=== PATIENT | male | born 1955 | race Caucasian/White ===

== ENCOUNTER 2016-06-12 18:51 | Emergency (ER) | payer BC ==
[2016-06-12] MEDS ORDERED: Aspirin 81 MG Tab.Chew PO ONE (19:03)
[2016-06-12] MEDS ORDERED: Sodium Chloride 0.9% 2.5 ML Syringe FLUSH PRN (19:03)
[2016-06-12] MEDS ORDERED: Sodium Chloride 0.9% 10 ML Syringe FLUSH PRN (19:03)
[2016-06-12] MEDS: Nitroglycerin 0.4 MG Tab.SL SL SCH ×3 (19:12→19:25)
[2016-06-12] MEDS ORDERED: Metoprolol Tartrate 5 MG/5 ML SDV IVPUSH ONE (19:14)
[2016-06-12] MEDS ORDERED: Aspirin 81 MG Tab.Chew ONE (19:18)
--- NOTE | 2016-06-12 19:19 | EDM.PDOC ---
ED HPI GENERAL MEDICAL PROBLEM - General Chief Complaint: Chest Pain Stated Complaint: PT HAS CHEST PAINS Time Seen by Provider: 06/12/16 19:05 - History of Present Illness INITIAL COMMENTS - FREE TEXT/NARRATIVE: HISTORY AND PHYSICAL: History of present illness: The patient is a 61-year-old male with history of high cholesterol and A. fib was been seen by cardiology at [facility] in [place] in the past for his atrial fibrillation and presents with midsternal chest pain pressure that started at 12 noon today. He says it's been coming and going and became more severe so he came in to be seen. He's having some shortness of breath but no lightheadedness no nausea no diaphoresis. He denies any trauma or recent upper respiratory infections. He has no abdominal pain. The patient is on metoprolol and Norpace for his A. fib. He rates the pain currently as 5/10 and it is not radiating. He points to his lower sternum as the area of discomfort. Patient has never had a heart catheter in the past and has no known coronary artery disease. He also has a history of hypercholesterolemia. Review of systems: As per history of present illness and below otherwise all systems reviewed and negative. Past medical history: As per history of present illness and as reviewed below otherwise noncontributory. Surgical history: As per history of present illness and as reviewed below otherwise noncontributory. Social history: No reported history of drug or alcohol abuse. Family history: As per history of present illness and as reviewed below otherwise noncontributory. Physical exam: General: Well-developed well-nourished male who is nontoxic but looks uncomfortable and vital signs are noted by me. HEENT: Atraumatic normocephalic, pupils reactive, negative for conjunctival pallor or scleral icterus, mucous membranes moist, throat clear, neck supple, nontender, trachea midline. Lungs: Clear to auscultation, breath sounds equal bilaterally, chest nontender. No work or breathing Heart: S1S2, irregular and tachycardic on my evaluation initially, negative for clicks, rubs, or JVD. Abdomen: Soft, nondistended, nontender. Negative for masses or hepatosplenomegaly. Negative for costovertebral tenderness. Pelvis: Stable nontender. Genitourinary: Deferred. Rectal: Deferred. Extremities: Atraumatic, negative for cords or calf pain. Neurovascular unremarkable. No pedal edema or leg asymmetry Neuro: Awake, alert, oriented. Cranial nerves II through XII unremarkable. Cerebellum unremarkable. Motor and sensory unremarkable throughout. Exam nonfocal. Diagnostics: EKG x2 portable chest x-ray CBC CMP INR troponin Therapeutics: IV O2 monitor nitroglycerin sublingual aspirin Lopressor 1908: Our hooker on Dr. Mariee was contacted and the EKG was sent to him after obtaining permission from the patient. He has reviewed it and would like to slow the rate and reevaluate with a second EKG. he states is not completely clear that this is an acute injury from this initial EKG. He also at 1913 recontacted me and asked if we could do an EKG looking at leads in V7 through V9. We are currently in the process of getting respiratory to do that. 1923: Dr. Mariee is aware that we're having difficulties getting the EKG he is requesting so he is coming in to see the patient. Currently the patient states his pain is a 2/10 after one nitroglycerin and his heart rate is in the low 100s. We will continue with the plan 1931: Repeat EKG shows normalization of the ST depression in V2 and V3 and slight increase in the sweep of the ST segment inferiorly but overall much improved. I've discussed the case with cardiology inhalation therapy aides teacher at [facility], Dr. Perez. He is except the patient for direct admission to the ICU. He would like me to not to give any Plavix but only Lovenox 1 mg per kilogram, he would like nitro drip and 5 mg more of Lopressor. I've inform the patient that he will be transferred and he and are in agreement and concur. The patient currently is pain-free. 1943: Currently the patient's heart rate is 49-50 and she did not receive the second dose of 5 mg of Lopressor. He is currently pain-free and feels more relaxed. I will do a third EKG and we will attempt to do the posterior EKG 1944: Dr. Mariee her hooker on is here and is reviewing the 2 EKGs and we are currently doing the third. The patient's heart rate is still holding in the high 40s low 50s. He is not lightheaded or dizzy. We will arrange for flight team to come and take the patient to [facility]. Dr. Mariee agrees that the patient should be flown to [facility]. 1950: 30 EKG shows a sinus bradycardia with no ST segment changes but Dr. Mariee still feels that the patient should be flown to [facility] for acute management. Portable chest x-ray is currently being performed and I will review that and send the films to [place] Impression: Acute non-STEMI ID with history of A. fib, Definitive disposition and diagnosis as appropriate pending reevaluation and review of above. Chest Pain Score (Numeric/FACES): 5 - Related Data Allergies Allergy/AdvReac Type Severity Reaction Status Date / Time No Known Allergies Allergy Verified 09/22/15 15:43 Home Meds: Home Meds Aspirin 162.5 mg PO DAILY 09/22/15 [History] Metoprolol Tartrate 12.5 mg PO BEDTIME 09/22/15 [History] Multivitamin [Daily Multiple Vitamin] 1 tab PO DAILY 09/22/15 [History] Chadwick-3 Fatty Acids [Fish Oil] 1 cap PO DAILY 09/22/15 [History] Simvastatin [Zocor] 20 mg PO BEDTIME 09/22/15 [History] Disopyramide Phosphate 200 mg PO BID 06/12/16 [History] Past Medical History Other HEENT History: wears glasses Cardiovascular History: Reports: Afib, High cholesterol Other Cardiovascular History: has "attack" of A-Fib about once a month, lasts 30 seconds to 1 minute Respiratory History: Reports: Sleep apnea Other Respiratory History: uses Bi-PAP Gastrointestinal History: Reports: GERD Genitourinary History: Reports: None Musculoskeletal History: Reports: Back pain, chronic, Fracture Neurological History: Reports: None Psychiatric History: Reports: None Endocrine/Metabolic History: Reports: None Hematologic History: Reports: None Immunologic History: Reports: None Oncologic (Cancer) History: Reports: None Dermatologic History: Reports: None - Past Surgical History Head Surgeries/Procedures: Reports: None GI Surgical History: Reports: None Male Surgical History: Reports: None Endocrine Surgical History: Reports: None Neurological Surgical History: Reports: None Other Musculoskeletal Surgeries/Procedures:: left leg Oncologic Surgical History: Reports: None Dermatological Surgical History: Reports: None Social & Family History - Tobacco Use Smoking Status *Q: Never Smoker - Recreational Drug Use Recreational Drug Use: No Drug Use in Last 12 Months: No ED ROS GENERAL - Review of Systems Review Of Systems: ROS reveals no pertinent complaints other than HPI. ED EXAM, GENERAL - Physical Exam Exam: See Below (See dictation) Course - Vital Signs Last Recorded V/S: Last Vital Signs Temp 37.4 C 06/12/16 19:40 Pulse 87 06/12/16 19:42 Resp 20 06/12/16 19:40 BP 127/74 06/12/16 19:42 Pulse Ox 97 06/12/16 19:40 - Orders/Labs/Meds Orders: Active Orders 24 hr Category Date Time Status Cardiac Monitoring [RC] . DIRECTED Care 06/12/16 19:03 Active EKG Documentation Completion [RC] STAT Care 06/12/16 19:03 Active EKG Documentation Completion [RC] STAT Care 06/12/16 19:26 Active Oxygen Therapy, ED [RC] ASDIRECTED Care 06/12/16 19:03 Active Pulse Oximetry [RC] ASDIRECTED Care 06/12/16 19:03 Active Chest 1V Frontal [CR] Stat Exams 06/12/16 19:03 Ordered Nitroglycerin/D5W [Nitroglycerin 25 MG/D5W 250 ML] 250 Med 06/12/16 19:45 Ordered ml IV TITRATE Sodium Chloride 0.9% [Saline Flush] Med 06/12/16 19:03 Active 10 ml FLUSH ASDIRECTED PRN Sodium Chloride 0.9% [Saline Flush] Med 06/12/16 19:03 Active 2.5 ml FLUSH ASDIRECTED PRN Saline Lock Insert [OM.PC] Stat Oth 06/12/16 19:03 Ordered Medication Orders Nitroglycerin/Dextrose (Nitroglycerin 25 Mg/D5w 250 Ml) 250 mls @ 3 mls/hr IV TITRATE SEBASTIAN PRN Reason: 5 MCG/MIN Sodium Chloride (Saline Flush) 10 ml FLUSH ASDIRECTED PRN PRN Reason: Keep Vein Open Sodium Chloride (Saline Flush) 2.5 ml FLUSH ASDIRECTED PRN PRN Reason: Keep Vein Open Labs: Laboratory Tests 06/12/16 06/12/16 06/12/16 Range/Units 19:00 19:00 19:00 WBC 7.42 (4.0-11.0) K/uL RBC 5.31 (4.50-5.90) M/uL Hgb 16.1 (13.0-17.0) g/dL Hct 44.9 (38.0-50.0) % MCV 84.6 (80.0-98.0) fL MCH 30.3 (27.0-32.0) pg MCHC 35.9 (31.0-37.0) g/dL RDW Std Deviation 39.7 (28.0-62.0) fl RDW Coeff of Madhu 13 (11.0-15.0) % Plt Count 145 L (150-400) K/uL MPV 11.40 (7.40-12.00) fL Neut % (Auto) 62.2 (48.0-80.0) % Lymph % (Auto) 28.4 (16.0-40.0) % Grant % (Auto) 7.5 (0.0-15.0) % Eos % (Auto) 1.8 (0.0-7.0) % Baso % (Auto) 0.1 (0.0-1.5) % Neut # (Auto) 4.6 (1.4-5.7) K/uL Lymph # (Auto) 2.1 (0.6-2.4) K/uL Grant # (Auto) 0.6 (0.0-0.8) K/uL Eos # (Auto) 0.1 (0.0-0.7) K/uL Baso # (Auto) 0.0 (0.0-0.1) K/uL Nucleated RBC % 0.0 /100WBC Nucleated RBCs # 0 K/uL INR 0.97 (0.86-1.11) Sodium 142 (136-146) mmol/L Potassium 3.7 (3.5-5.1) mmol/L Chloride 108 (98-110) mmol/L Carbon Dioxide 23 (21-31) mmol/L BUN 16 (6.0-23.0) mg/dL Creatinine 1.1 (0.6-1.5) mg/dL Est Cr Clr Drug Dosing 81.99 mL/min Estimated GFR (MDRD) > 60.0 ml/min Glucose 85 (60-110) mg/dL Calcium 10.0 (8.8-10.8) mg/dL Total Bilirubin 0.8 (0.1-1.5) mg/dL AST 33 (5-40) IU/L ALT 56 H (8-54) IU/L Alkaline Phosphatase 72 (40-150) Troponin I (0.0-0.29) NG/ML Total Protein 7.8 (6.0-8.0) g/dL Albumin 4.6 (3.4-4.8) g/dL Globulin 3.2 (2.0-3.5) g/dL Albumin/Globulin Ratio 1.4 (1.3-2.8) 06/12/16 Range/Units 19:00 WBC (4.0-11.0) K/uL RBC (4.50-5.90) M/uL Hgb (13.0-17.0) g/dL Hct (38.0-50.0) % MCV (80.0-98.0) fL MCH (27.0-32.0) pg MCHC (31.0-37.0) g/dL RDW Std Deviation (28.0-62.0) fl RDW Coeff of Madhu (11.0-15.0) % Plt Count (150-400) K/uL MPV (7.40-12.00) fL Neut % (Auto) (48.0-80.0) % Lymph % (Auto) (16.0-40.0) % Grant % (Auto) (0.0-15.0) % Eos % (Auto) (0.0-7.0) % Baso % (Auto) (0.0-1.5) % Neut # (Auto) (1.4-5.7) K/uL Lymph # (Auto) (0.6-2.4) K/uL Grant # (Auto) (0.0-0.8) K/uL Eos # (Auto) (0.0-0.7) K/uL Baso # (Auto) (0.0-0.1) K/uL Nucleated RBC % /100WBC Nucleated RBCs # K/uL INR (0.86-1.11) Sodium (136-146) mmol/L Potassium (3.5-5.1) mmol/L Chloride (98-110) mmol/L Carbon Dioxide (21-31) mmol/L BUN (6.0-23.0) mg/dL Creatinine (0.6-1.5) mg/dL Est Cr Clr Drug Dosing mL/min Estimated GFR (MDRD) ml/min Glucose (60-110) mg/dL Calcium (8.8-10.8) mg/dL Total Bilirubin (0.1-1.5) mg/dL AST (5-40) IU/L ALT (8-54) IU/L Alkaline Phosphatase (40-150) Troponin I 0.31 H* (0.0-0.29) NG/ML Total Protein (6.0-8.0) g/dL Albumin (3.4-4.8) g/dL Globulin (2.0-3.5) g/dL Albumin/Globulin Ratio (1.3-2.8) Meds: Medications Generic Name Dose Route Start Last Admin Trade Name Freq PRN Reason Stop Dose Admin Nitroglycerin/Dextrose 250 mls @ 3 mls/hr 06/12/16 19:45 Nitroglycerin 25 Mg/D5w 250 Ml IV TITRATE SEBASTIAN 5 MCG/MIN Sodium Chloride 10 ml 06/12/16 19:03 Saline Flush FLUSH ASDIRECTED PRN Keep Vein Open Sodium Chloride 2.5 ml 06/12/16 19:03 Saline Flush FLUSH ASDIRECTED PRN Keep Vein Open Discontinued Medications Generic Name Dose Route Start Last Admin Trade Name Freq PRN Reason Stop Dose Admin Aspirin 324 mg 06/12/16 19:03 06/12/16 19:12 Aspirin PO 06/12/16 19:04 324 mg ONETIME ONE Administration Aspirin Confirm 06/12/16 19:18 06/12/16 19:38 Aspirin Administered 06/12/16 19:19 Not Given Dose 81 mg .ROUTE .STK-MED ONE Enoxaparin Sodium 100 mg 06/12/16 19:37 06/12/16 19:42 Lovenox SUBCUT 06/12/16 19:38 100 mg ONETIME ONE Administration Metoprolol Tartrate 2.5 mg 06/12/16 19:14 06/12/16 19:22 Lopressor IVPUSH 06/12/16 19:15 2.5 mg ONETIME ONE Administration Metoprolol Tartrate 5 mg 06/12/16 19:37 06/12/16 19:42 Lopressor IVPUSH 06/12/16 19:38 5 mg ONETIME ONE Administration Nitroglycerin 0.4 mg 06/12/16 19:15 06/12/16 19:25 Nitrostat SL 06/12/16 19:26 0.4 mg Q5M SEBASTIAN Administration Departure - Departure Time of Disposition: 19:52 Disposition: DC/Tfer to Acute Hospital 02 Condition: good Clinical Impression: Non-STEMI (non-ST elevated myocardial infarction) Forms: ED Department Discharge - My Orders Last 24 Hours: My Active Orders 06/12/16 19:03 Cardiac Monitoring [RC] . DIRECTED EKG Documentation Completion [RC] STAT Oxygen Therapy, ED [RC] ASDIRECTED Pulse Oximetry [RC] ASDIRECTED Chest 1V Frontal [CR] Stat Sodium Chloride 0.9% [Saline Flush] 10 ml FLUSH ASDIRECTED PRN Sodium Chloride 0.9% [Saline Flush] 2.5 ml FLUSH ASDIRECTED PRN Saline Lock Insert [OM.PC] Stat 06/12/16 19:26 EKG Documentation Completion [RC] STAT 06/12/16 19:45 Nitroglycerin/D5W [Nitroglycerin 25 MG/D5W 250 ML] 250 ml IV TITRATE - Assessment/Plan Last 24 Hours: My Active Orders 06/12/16 19:03 Cardiac Monitoring [RC] . DIRECTED EKG Documentation Completion [RC] STAT Oxygen Therapy, ED [RC] ASDIRECTED Pulse Oximetry [RC] ASDIRECTED Chest 1V Frontal [CR] Stat Sodium Chloride 0.9% [Saline Flush] 10 ml FLUSH ASDIRECTED PRN Sodium Chloride 0.9% [Saline Flush] 2.5 ml FLUSH ASDIRECTED PRN Saline Lock Insert [OM.PC] Stat 06/12/16 19:26 EKG Documentation Completion [RC] STAT 06/12/16 19:45 Nitroglycerin/D5W [Nitroglycerin 25 MG/D5W 250 ML] 250 ml IV TITRATE
[2016-06-12] MEDS ORDERED: Enoxaparin 100 MG/1 ML Syringe SUBCUT ONE (19:37)
[2016-06-12 19:38] LABS: CHLORIDE,CL 108 mmol/L (98-110); SODIUM,NA 142 mmol/L (136-146)
[2016-06-12] MEDS: Metoprolol Tartrate 5 MG/5 ML SDV IVPUSH ONE ×2 (19:42→19:46)
[2016-06-12] MEDS ORDERED: Nitroglycerin/D5W 25 MG/250 ML BOTTLE IV SCH (19:45)
[2016-06-12 21:06] VITALS: BP 127/84
--- NOTE | 2016-06-13 11:01 | CR ---
EXAM DATE: 06/12/16 PATIENT'S AGE: 61 Patient: AJ DE LEÓN Facility: [place], [place] Site Site : [id number] Study: XRay Chest [id number] 8:03:51 PM Ordering Physician: ELI Final Report: HISTORY: Chest pain. Technique: One view portable chest. Comparison: None. Findings: No airspace consolidation. No pleural effusion or pneumothorax. Pulmonary vasculature is within normal limits. Cardiomediastinal silhouette is within normal limits for technique. Impression: No acute findings. Dictated by Pablo Rice MD @ Jun 12 2016 8:07PM (Electronic Signature) Report Signed by Proxy and Original Signed Document filed in the Medical Record. MTDD
== END 2016-06-12 20:20 ==
LOC: MW.ED 18:51
DX: I21.4 Non-ST elevation (NSTEMI) myocardial infarction (principal); E78.00 Pure hypercholesterolemia, unspecified; Z79.899 Other long term (current) drug therapy; Z79.82 Long term (current) use of aspirin; I48.91 Unspecified atrial fibrillation
CPT/HCPCS: 36415; 71010; 80053; 84484; 85025; 85610; 93005; 96372; 96374; 99285; A9270; J1650

== ENCOUNTER 2017-06-17 06:19 | Emergency (ER) | payer BC ==
--- NOTE | 2017-06-17 06:26 | EDM.PDOC ---
<Pablo Alvarez - Last Filed: 06/17/17 07:03> ED HPI GENERAL MEDICAL PROBLEM - General Chief Complaint: Back Pain or Injury Stated Complaint: BACK PAIN Time Seen by Provider: 06/17/17 06:26 Source of Information: Reports: Patient - History of Present Illness INITIAL COMMENTS - FREE TEXT/NARRATIVE: HISTORY AND PHYSICAL: History of present illness: [Patient presents with 7 out of 10 chest pain radiating to his back he has history of atrial fibrillation post ablation last year as well as 6 stents placed last year, patient is quite anxious on arrival no safe association with shortness of breath or diaphoresis no radiation to arm neck or jaw Patient had taken nitroglycerin at home With some improvement after first dose he did not take any subsequent dosing of nitroglycerin ] Review of systems: As per history of present illness and below otherwise all systems reviewed and negative. Past medical history: As per history of present illness and as reviewed below otherwise noncontributory. Surgical history: As per history of present illness and as reviewed below otherwise noncontributory. Social history: No reported history of drug or alcohol abuse. Family history: As per history of present illness and as reviewed below otherwise noncontributory. Physical exam: HEENT: Atraumatic, normocephalic, pupils reactive, negative for conjunctival pallor or scleral icterus, mucous membranes moist, throat clear, neck supple, nontender, trachea midline. Lungs: Clear to auscultation, breath sounds equal bilaterally, chest nontender. Heart: S1S2, regular, negative for clicks, rubs, or JVD. Abdomen: Soft, nondistended, nontender. Negative for masses or hepatosplenomegaly. Negative for costovertebral tenderness. Pelvis: Stable nontender. Genitourinary: Deferred. Rectal: Deferred. Extremities: Atraumatic, negative for cords or calf pain. Neurovascular unremarkable. Neuro: Awake, alert, oriented. Cranial nerves II through XII unremarkable. Cerebellum unremarkable. Motor and sensory unremarkable throughout. Exam nonfocal. Diagnostics: [CBC CMP troponin lipase EKG Chest 1 view ] Therapeutics: Normal saline 1 25 mL [Patient had taken aspirin 325 mg 2 hours prior to arrival] Nitroglycerin 0.4 sublingual every 5 minutes Morphine 2 mg IV Impression: [Chest pain Chronic history at baseline] Patient signed out to Dr. Liang at 7 AM follow lab and redirected and disposition Definitive disposition and diagnosis as appropriate pending reevaluation and review of above. back pain Pain Score (Numeric/FACES): 5 - Related Data Allergies Allergy/AdvReac Type Severity Reaction Status Date / Time No Known Allergies Allergy Verified 06/17/17 06:25 Home Meds: Home Meds Aspirin 81 mg PO DAILY 09/22/15 [History] Multivitamin [Daily Multiple Vitamin] 1 tab PO DAILY 09/22/15 [History] [place]-3 Fatty Acids [Fish Oil] 1 cap PO DAILY 09/22/15 [History] Nitroglycerin [Nitrostat] 1 tab SL ASDIRECTED PRN 06/17/17 [History] Prasugrel [Effient] 10 mg PO DAILY 06/17/17 [History] Ramipril 1 tab PO DAILY 06/17/17 [History] Rosuvastatin [Crestor] 40 mg PO DAILY 06/17/17 [History] Past Medical History Other HEENT History: wears glasses Cardiovascular History: Reports: Afib, High Cholesterol Other Cardiovascular History: has "attack" of A-Fib about once a month, lasts 30 seconds to 1 minute Respiratory History: Reports: Sleep Apnea Other Respiratory History: uses Bi-PAP Gastrointestinal History: Reports: GERD Genitourinary History: Reports: None Musculoskeletal History: Reports: Back Pain, Chronic, Fracture Neurological History: Reports: None Psychiatric History: Reports: None Endocrine/Metabolic History: Reports: None Hematologic History: Reports: None Immunologic History: Reports: None Oncologic (Cancer) History: Reports: None Dermatologic History: Reports: None - Past Surgical History Head Surgeries/Procedures: Reports: None GI Surgical History: Reports: None Male Surgical History: Reports: None Endocrine Surgical History: Reports: None Neurological Surgical History: Reports: None Other Musculoskeletal Surgeries/Procedures:: left leg Oncologic Surgical History: Reports: None Dermatological Surgical History: Reports: None Social & Family History - Tobacco Use Smoking Status *Q: Never Smoker - Recreational Drug Use Recreational Drug Use: No Drug Use in Last 12 Months: No Course - Vital Signs Last Recorded V/S: Last Vital Signs Temp 36.0 C 06/17/17 08:55 Pulse 59 L 06/17/17 08:55 Resp 16 06/17/17 08:55 BP 102/59 L 06/17/17 08:55 Pulse Ox 97 06/17/17 08:55 - Orders/Labs/Meds Orders: Active Orders 24 hr Category Date Time Status EKG Documentation Completion [RC] STAT Care 06/17/17 06:25 Active Abdomen Pelvis w Cont [CT] Stat Exams 06/17/17 07:33 Taken Chest 1V Frontal [CR] Stat Exams 06/17/17 06:25 Taken Chest w Cont [CT] Stat Exams 06/17/17 07:33 Taken Sodium Chloride 0.9% [Normal Saline] 1,000 ml Med 06/17/17 06:30 Active IV STAT Medication Orders Sodium Chloride (Normal Saline) 1,000 mls @ 125 mls/hr IV STAT SEBASTIAN Last Admin: 06/17/17 06:33 Dose: 125 mls/hr Labs: Laboratory Tests 06/17/17 06/17/17 06/17/17 Range/Units 06:25 06:25 06:25 WBC 5.24 (4.0-11.0) K/uL RBC 4.99 (4.50-5.90) M/uL Hgb 15.1 (13.0-17.0) g/dL Hct 42.0 (38.0-50.0) % MCV 84.2 (80.0-98.0) fL MCH 30.3 (27.0-32.0) pg MCHC 36.0 (31.0-37.0) g/dL RDW Std Deviation 39.3 (28.0-62.0) fl RDW Coeff of Madhu 13 (11.0-15.0) % Plt Count 138 L (150-400) K/uL MPV 11.10 (7.40-12.00) fL Neut % (Auto) 49.2 (48.0-80.0) % Lymph % (Auto) 36.5 (16.0-40.0) % [place]ord % (Auto) 10.1 (0.0-15.0) % Eos % (Auto) 4.0 (0.0-7.0) % Baso % (Auto) 0.2 (0.0-1.5) % Neut # (Auto) 2.6 (1.4-5.7) K/uL Lymph # (Auto) 1.9 (0.6-2.4) K/uL [place]ord # (Auto) 0.5 (0.0-0.8) K/uL Eos # (Auto) 0.2 (0.0-0.7) K/uL Baso # (Auto) 0.0 (0.0-0.1) K/uL Nucleated RBC % 0.0 /100WBC Nucleated RBCs # 0 K/uL INR 0.98 Sodium 145 (136-148) mmol/L Potassium 4.0 (3.5-5.1) mmol/L Chloride 110 H (98-107) mmol/L Carbon Dioxide 24.5 (21.0-32.0) mmol/L BUN 11 (7.0-18.0) mg/dL Creatinine 1.0 (0.8-1.3) mg/dL Est Cr Clr Drug Dosing 89.05 mL/min Estimated GFR (MDRD) > 60.0 ml/min Glucose 109 H (74-106) mg/dL Calcium 9.7 (8.5-10.1) mg/dL Total Bilirubin 0.3 (0.2-1.0) mg/dL AST 18 (15-37) IU/L ALT 31 (14-63) IU/L Alkaline Phosphatase 72 (46-116) U/L Creatine Kinase (26-308) U/L CK-MB (CK-2) (0-3.6) ng/mL Troponin I < 0.050 (0.000-0.056) ng/mL Total Protein 7.4 (6.4-8.2) g/dL Albumin 4.0 (3.4-5.0) g/dL Globulin 3.4 (2.0-3.5) g/dL Albumin/Globulin Ratio 1.2 L (1.3-2.8) Lipase 167 (73-393) U/L 06/17/17 Range/Units 06:25 WBC (4.0-11.0) K/uL RBC (4.50-5.90) M/uL Hgb (13.0-17.0) g/dL Hct (38.0-50.0) % MCV (80.0-98.0) fL MCH (27.0-32.0) pg MCHC (31.0-37.0) g/dL RDW Std Deviation (28.0-62.0) fl RDW Coeff of Madhu (11.0-15.0) % Plt Count (150-400) K/uL MPV (7.40-12.00) fL Neut % (Auto) (48.0-80.0) % Lymph % (Auto) (16.0-40.0) % [place]elford % (Auto) (0.0-15.0) % Eos % (Auto) (0.0-7.0) % Baso % (Auto) (0.0-1.5) % Neut # (Auto) (1.4-5.7) K/uL Lymph # (Auto) (0.6-2.4) K/uL [place] # (Auto) (0.0-0.8) K/uL Eos # (Auto) (0.0-0.7) K/uL Baso # (Auto) (0.0-0.1) K/uL Nucleated RBC % /100WBC Nucleated RBCs # K/uL INR Sodium (136-148) mmol/L Potassium (3.5-5.1) mmol/L Chloride (98-107) mmol/L Carbon Dioxide (21.0-32.0) mmol/L BUN (7.0-18.0) mg/dL Creatinine (0.8-1.3) mg/dL Est Cr Clr Drug Dosing mL/min Estimated GFR (MDRD) ml/min Glucose (74-106) mg/dL Calcium (8.5-10.1) mg/dL Total Bilirubin (0.2-1.0) mg/dL AST (15-37) IU/L ALT (14-63) IU/L Alkaline Phosphatase (46-116) U/L Creatine Kinase 95 (26-308) U/L CK-MB (CK-2) 1.0 (0-3.6) ng/mL Troponin I (0.000-0.056) ng/mL Total Protein (6.4-8.2) g/dL Albumin (3.4-5.0) g/dL Globulin (2.0-3.5) g/dL Albumin/Globulin Ratio (1.3-2.8) Lipase (73-393) U/L Meds: Medications Generic Name Dose Route Start Last Admin Trade Name Freq PRN Reason Stop Dose Admin Sodium Chloride 1,000 mls @ 125 mls/hr 06/17/17 06:30 04/22/18 06:33 Normal Saline IV 125 mls/hr STAT SEBASTIAN Administration Discontinued Medications Generic Name Dose Route Start Last Admin Trade Name Freq PRN Reason Stop Dose Admin Iopamidol 200 ml 06/17/17 07:54 06/17/17 07:54 Isovue Multipack-370 (76%) IVPUSH 06/17/17 07:55 110 ml ONETIME STA Administration Morphine Sulfate 2 mg 06/17/17 06:35 06/17/17 06:54 Morphine IVPUSH 06/17/17 06:36 2 mg ONETIME ONE Administration Nitroglycerin 0.4 mg 06/17/17 06:35 06/17/17 06:49 Nitrostat SL 0.4 mg Q5M PRN Administration Chest Pain Departure - Departure Disposition: Home, Self-Care 01 Clinical Impression: Thoracic back pain Qualifiers: Chronicity: acute Back pain laterality: right Qualified Code(s): M54.6 - Pain in thoracic spine - Discharge Information Referrals: Ronnell Richardson MD [Primary Care Provider] - Forms: ED Department Discharge Additional Instructions: The following information is given to patients seen in the emergency department who are being discharged to home. This information is to outline your options for follow-up care. We provide all patients seen in our emergency department with a follow-up referral. The need for follow-up, as well as the timing and circumstances, are variable depending upon the specifics of your emergency department visit. If you don't have a primary care physician on staff, we will provide you with a referral. We always advise you to contact your personal physician following an emergency department visit to inform them of the circumstance of the visit and for follow-up with them and/or the need for any referrals to a consulting specialist. The emergency department will also refer you to a specialist when appropriate. This referral assures that you have the opportunity for followup care with a specialist. All of these measure are taken in an effort to provide you with optimal care, which includes your followup. Under all circumstances we always encourage you to contact your private physician who remains a resource for coordinating your care. When calling for followup care, please make the office aware that this follow-up is from your recent emergency room visit. If for any reason you are refused follow-up, please contact the [facility] emergency department at and ask to speak to the emergency department charge nurse. [facility] [address] [place] [id number] Please contact and follow-up with your provider at [facility] on Sunday or Sunday and return to ER as needed and as we discussed. Use medications as prescribed and needed and try to rest and do only small activities next few days. - My Orders Last 24 Hours: My Active Orders 06/17/17 07:33 Abdomen Pelvis w Cont [CT] Stat Chest w Cont [CT] Stat - Assessment/Plan Last 24 Hours: My Active Orders 06/17/17 07:33 Abdomen Pelvis w Cont [CT] Stat Chest w Cont [CT] Stat <Ruma Keating - Last Filed: 06/17/17 09:21> ED HPI GENERAL MEDICAL PROBLEM - History of Present Illness INITIAL COMMENTS - FREE TEXT/NARRATIVE: This is Dr. Keating dictating an addendum note as I seem care of this case at 7 AM. The patient complains to me of right flank and thoracic back pain and has no pain on the left. I took care of him when he was transferred for his acute [place] and he does have the history of the A. fib ablation. When he saw his seismology technical officer on Sunday he mentioned that he had this posterior back pain but they were more focusing on his heart checkup. The patient denies any history of gallbladder or kidney issues and denies any recent trauma. He has no shortness of breath or upper respiratory symptoms. He currently points to me physically to the right of the thoracic spine in the flank area as the area and location of his pain. He has been given medications for pain and I will reevaluate that as well as do a CT scan of the chest abdomen and pelvis to investigate other noncardiac causes of this discomfort. He has a history of hypercholesterolemia and does take Effient. Patient received nitroglycerin here as well as taking nitroglycerin at home and there was no change in his discomfort and he took aspirin 325 prior to arrival. He has received morphine here. The patient is currently very stable and we will reevaluate after imaging The patient is aware of all testing results being negative and he currently states that after the morphine his pain is significantly improved. I've offered him an observation admission for a cardiac rule out even though his pain is on the right side in light of his recent history or follow up with his provider at [facility] tomorrow and pain management of his right flank/upper back pain. He will discuss this with his who was on her way back to the ER. I discussed all testing results with the patient and at bedside and again have reoffered observation admission versus follow-up at home and the patient would like to not be admitted at this time. He would like to follow-up with his provider at [facility], Dr. Richardson as well as his chiropractor. He says he just saw his seismology technical officer on Sunday in the did not think much of his back pain so he would like to try to go home. He was strongly advised to return to the ER if the pain evolved change or developed and I will give him a few pain pills as the morphine seems to help his discomfort. He promises that he will return to the ER for changes and as we discussed. Impression: Right thoracic back pain with significant cardiac history etiology unclear stable ED ROS GENERAL - Review of Systems Review Of Systems: ROS reveals no pertinent complaints other than HPI. ED EXAM, GENERAL - Physical Exam Exam: See Below (See dictation) Departure - Departure Time of Disposition: 09:21 Condition: Good
[2017-06-17] MEDS ORDERED: Sodium Chloride 0.9% 1,000 ML IV SCH (06:30)
[2017-06-17] MEDS ORDERED: Morphine 4 MG/ML Syringe IVPUSH ONE (06:35)
[2017-06-17] MEDS: Nitroglycerin 0.4 MG Tab.SL SL PRN ×3 (06:39→06:49)
[2017-06-17 07:07] LABS: CHLORIDE,CL 110 mmol/L (98-107); SODIUM,NA 145 mmol/L (136-148)
[2017-06-17] MEDS ORDERED: Iopamidol 755 MG/ML 200 ML Multipack Bottle IVPUSH STA (07:54)
[2017-06-17 09:54] VITALS: BP 111/71
--- NOTE | 2017-06-18 14:17 | CR ---
EXAM DATE: 06/17/17 PATIENT'S AGE: 62 Patient: AJ DE LEÓN Facility: [place], [place] Site . Site : 1955 Study: XRay Chest [id number]/22/2018 6:53:17 AM Ordering Physician: Doctor Plascencia Final Report: HISTORY: Chest pain. COMPARISON: 06/12/2016. FINDINGS: Single frontal view of the chest. The lungs are clear. No evidence for pneumonia. Heart size and pulmonary vascularity are within normal limits. Costophrenic angles sharp. The bony thorax appears intact. Dictated by Umu Santamaira MD @ Jun 17 2017 7:12AM (Electronic Signature) Report Signed by Proxy. SAMEERA
--- NOTE | 2017-06-18 14:23 | CT ---
EXAM DATE: 06/17/17 PATIENT'S AGE: 62 Patient: AJ DE LEÓN Facility: [place], [place] Site . Site : 1955 Study: CT Abdomen/Pelvis WITH [id number]/22/2018 8:15:45 AM Ordering Physician: Francisco Shah Final Report: HISTORY: Right-sided flank pain and generalized abdominal pain. COMPARISON: None. TECHNIQUE: Axial images were obtained through the abdomen and pelvis following intravenous contrast. FINDINGS: The lung bases are clear. The liver, spleen, pancreas, gallbladder, adrenal glands and kidneys are within normal. No hydronephrosis. The bowel is normal in caliber. The appendix is normal. No lymphadenopathy or ascites. The abdominal aorta is normal in caliber with minimal atherosclerotic change. Minimal degenerative changes in the spine. IMPRESSION: No acute abnormality. Please note that all CT scans at this facility use dose modulation, iterative reconstruction, and/or weight-based dosing when appropriate to reduce radiation dose to as low as reasonably achievable. Dictated by Umu Santamaria MD @ Jun 17 2017 8:22AM (Electronic Signature) Report Signed by Proxy. [facility]
--- NOTE | 2017-06-18 14:25 | CT ---
EXAM DATE: 06/17/17 PATIENT'S AGE: 62 Patient: AJ DE LEÓN Facility: [place], [place] Site . Site : 1955 Study: CT Chest WITH [id number]/2018 8:16:07 AM Ordering Physician: Francisco Shah Final Report: HISTORY: Chest pain. COMPARISON: Chest x-ray 06/17/2017. TECHNIQUE: Axial images were obtained through the chest following intravenous contrast. FINDINGS: Minimal dependent ground-glass opacities likely related to atelectasis. The lungs are otherwise clear. No suspicious pulmonary nodule. Tiny calcified nodule in the right upper lobe. No pleural or pericardial effusion. No thoracic lymphadenopathy. The adrenal glands are normal. The bones are intact. IMPRESSION: No acute abnormality. Please note that all CT scans at this facility use dose modulation, iterative reconstruction, and/or weight-based dosing when appropriate to reduce radiation dose to as low as reasonably achievable. Dictated by Umu Santamaria MD @ Jun 17 2017 8:39AM (Electronic Signature) Report Signed by Proxy. [facility]
== END 2017-06-17 09:45 | disposition home or self-care (01) ==
LOC: MW.ED 06:19
DX: M54.6 Pain in thoracic spine (principal); R07.9 Chest pain, unspecified; I48.91 Unspecified atrial fibrillation; E78.00 Pure hypercholesterolemia, unspecified; K21.9 Gastro-esophageal reflux disease without esophagitis; G47.30 Sleep apnea, unspecified; Z95.5 Presence of coronary angioplasty implant and graft; Z79.82 Long term (current) use of aspirin; Z79.899 Other long term (current) drug therapy; Z99.89 Dependence on other enabling machines and devices
CPT/HCPCS: 71045; 71260; 74177; 80053; 82550; 82553; 83690; 84484; 85025; 85610; 93005; 96361; 96374; 99284; A9270; J2270; J7040; Q9967

== ENCOUNTER 2018-04-02 15:49 | Emergency (ER) | payer BC ==
[2018-04-02] MEDS ORDERED: Ketorolac 30 MG/ML SDV IVPUSH ONE (16:10)
[2018-04-02] MEDS ORDERED: Sodium Chloride 0.9% 1,000 ML IV ONE (16:10)
[2018-04-02] MEDS ORDERED: Sodium Chloride 0.9% 2.5 ML Syringe FLUSH PRN (16:10)
[2018-04-02] MEDS ORDERED: Sodium Chloride 0.9% 10 ML Syringe FLUSH PRN (16:10)
[2018-04-02] MEDS ORDERED: Ondansetron 4 MG/2 ML SDV IVPUSH ONE (16:10)
[2018-04-02] MEDS ORDERED: Acetaminophen 500 MG Tab PO ONE (16:11)
--- NOTE | 2018-04-02 16:15 | EDM.PDOC ---
ED HPI GENERAL MEDICAL PROBLEM - General Chief Complaint: General Stated Complaint: FLU SYMPTOMS Time Seen by Provider: 04/02/18 15:56 - History of Present Illness INITIAL COMMENTS - FREE TEXT/NARRATIVE: HISTORY AND PHYSICAL: History of present illness: The patient is a 62-year-old male with a significant past medical history of hypertension hypercholesterolemia A. fib and an stemming for which I took care of him, and who presents today after being seen and evaluated at [facility] for fever and body aches nausea vomiting and slight cough as well as dysuria. The patient had labs and a chest x-ray done at [facility] and was sent over here by the provider for IV fluid hydration. I reviewed the labs including a CBC UA and CMP and the chest x-ray results. The UA has clumps of WBC., Bacteria large ketones and an elevated specific gravity and the chest x-ray was read as normal. The patient also had an influenza screen which was positive for influenza A. The patient says he did not get his flu shot this year. Here in the ER he says he just is complaining of diffuse body aches and malaise and has had fevers at home that respond to medication. He's had a slight cough and some congestion but not significant. He has no abdominal pain or diarrhea and says that he can't keep any fluids down and the vomiting only started today. He also has pain with urination and the urine is very dark. He has no chest pain or cardiac complaints. Review of systems: As per history of present illness and below otherwise all systems reviewed and negative. Past medical history: As per history of present illness and as reviewed below otherwise noncontributory. Surgical history: As per history of present illness and as reviewed below otherwise noncontributory. Social history: No reported history of drug or alcohol abuse. Family history: As per history of present illness and as reviewed below otherwise noncontributory. Physical exam: General: Well-developed well-nourished mildly overweight man who is nontoxic and vital signs were noted by me. HEENT: Atraumatic, normocephalic, negative for conjunctival pallor or scleral icterus, mucous membranes moist, throat clear, neck supple, nontender, trachea midline. There is no cervical adenopathy or nuchal rigidity Lungs: Clear to auscultation, breath sounds equal bilaterally, chest nontender. No wheezing stridor or work of breathing Heart: S1S2, regular rate and rhythm no murmurs Abdomen: Soft, nondistended, nontender. Negative for masses or hepatosplenomegaly. Negative for costovertebral tenderness. Pelvis: Deferred Genitourinary: Deferred. Rectal: Deferred. Extremities: Atraumatic, negative for cords or calf pain. Neurovascular unremarkable. Neuro: Awake, alert, oriented. Cranial nerves II through XII unremarkable. Cerebellum unremarkable. Motor and sensory unremarkable throughout. Exam nonfocal. Diagnostics: Patient had CBC CMP influenza screen UA and chest x-ray done at [facility] and I have added a repeat UA with reflex culture as I am not sure for culture was sent from [facility] Therapeutics: IV fluids Zofran Toradol Tylenol Levaquin Patient and spouse at bedside are aware of prescriptions for home including Tamiflu Pyridium Levaquin and Zofran. The patient was to try a popsicle and is feeling much less nauseated now. He is receiving a finishing his second bolus of 500 mL and will receive a dose of Levaquin prior to departure. His fever has broken is currently 99. Advised the patient to eat popsicles and push hydration and bites of bland food. I've also advised that he take Tylenol and Motrin [id number] to help with his fever management Impression: Influenza A, UTI, vomiting and dehydration Definitive disposition and diagnosis as appropriate pending reevaluation and review of above. - Related Data Allergies Allergy/AdvReac Type Severity Reaction Status Date / Time No Known Allergies Allergy Verified 04/02/18 16:09 Home Meds: Home Meds Aspirin 81 mg PO DAILY 09/22/15 [History] Multivitamin [Daily Multiple Vitamin] 1 tab PO BID 09/22/15 [History] Drifting-3 Fatty Acids [Fish Oil] 1 cap PO DAILY 09/22/15 [History] Nitroglycerin [Nitrostat] 1 tab SL ASDIRECTED PRN 06/17/17 [History] Rosuvastatin [Crestor] 40 mg PO DAILY 06/17/17 [History] Cholecalciferol (Vitamin D3) [Vitamin D3] 1,000 units PO DAILY 04/02/18 [History ] Loratadine [Claritin] 10 mg PO ASDIRECTED 04/02/18 [History] Metoprolol Tartrate [Lopressor] 12.5 mg PO BID 04/02/18 [History] Sildenafil [Revatio] 50 - 100 mg PO ASDIRECTED 04/02/18 [History] Past Medical History Other HEENT History: wears glasses Cardiovascular History: Reports: Afib, High Cholesterol Other Cardiovascular History: has "attack" of A-Fib about once a month, lasts 30 seconds to 1 minute Respiratory History: Reports: Sleep Apnea Other Respiratory History: uses Bi-PAP Gastrointestinal History: Reports: GERD Genitourinary History: Reports: None Musculoskeletal History: Reports: Back Pain, Chronic, Fracture Neurological History: Reports: None Psychiatric History: Reports: None Endocrine/Metabolic History: Reports: None Hematologic History: Reports: None Immunologic History: Reports: None Oncologic (Cancer) History: Reports: None Dermatologic History: Reports: None - Infectious Disease History Infectious Disease History: Reports: None - Past Surgical History Head Surgeries/Procedures: Reports: None GI Surgical History: Reports: None Male Surgical History: Reports: None Endocrine Surgical History: Reports: None Neurological Surgical History: Reports: None Other Musculoskeletal Surgeries/Procedures:: left leg Oncologic Surgical History: Reports: None Dermatological Surgical History: Reports: None Social & Family History - Family History Family Medical History: Noncontributory ED ROS GENERAL - Review of Systems Review Of Systems: ROS reveals no pertinent complaints other than HPI. ED EXAM, GENERAL - Physical Exam Exam: See Below (See dictation) Course - Vital Signs Last Recorded V/S: Last Vital Signs Temp 37.3 C 04/02/18 17:10 Pulse 99 04/02/18 16:06 Resp 18 04/02/18 16:06 BP 131/69 04/02/18 16:06 Pulse Ox 95 04/02/18 16:06 - Orders/Labs/Meds Orders: Active Orders 24 hr Category Date Time Status CULTURE URINE [RM] Stat Lab 04/02/18 16:23 Received Levofloxacin/Dextrose 5%-Water [Levaquin in D5W 500 MG/ Med 04/02/18 17:57 Ordered 100 ML] 500 mg Premix Bag 1 bag IV ONETIME Sodium Chloride 0.9% [Normal Saline] 500 ml Med 04/02/18 17:41 Active IV ONETIME Sodium Chloride 0.9% [Saline Flush] Med 04/02/18 16:10 Active 10 ml FLUSH ASDIRECTED PRN Sodium Chloride 0.9% [Saline Flush] Med 04/02/18 16:10 Active 2.5 ml FLUSH ASDIRECTED PRN Saline Lock Insert [OM.PC] Stat Oth 04/02/18 16:10 Ordered Medication Orders Sodium Chloride (Normal Saline) 500 mls @ 999 mls/hr IV ONETIME ONE Stop: 04/02/18 18:11 Last Admin: 04/02/18 17:42 Dose: 999 mls/hr Levofloxacin/Dextrose 500 mg/ (Premix) 100 mls @ 100 mls/hr IV ONETIME ONE Stop: 04/02/18 18:56 Last Admin: 04/02/18 18:03 Dose: 100 mls/hr Sodium Chloride (Saline Flush) 10 ml FLUSH ASDIRECTED PRN PRN Reason: Keep Vein Open Sodium Chloride (Saline Flush) 2.5 ml FLUSH ASDIRECTED PRN PRN Reason: Keep Vein Open Labs: Laboratory Tests 04/02/18 Range/Units 16:23 Urine Color BROWN Urine Appearance CLOUDY Urine pH 5.0 (5.0-8.0) Ur Specific [place] >= 1.030 (1.001-1.035) Urine Protein >=300 H (NEGATIVE) mg/dL Urine Glucose (UA) NEGATIVE (NEGATIVE) mg/dL Urine Ketones >=80 (NEGATIVE) mg/dL Urine Occult Blood LARGE H (NEGATIVE) Urine Nitrite POSITIVE H (NEGATIVE) Urine Bilirubin MODERATE H (NEGATIVE) Urine Urobilinogen 1.0 (<2.0) EU/dL Ur Leukocyte Esterase SMALL H (NEGATIVE) Urine RBC 350-450 (0-2/HPF) Urine WBC 150-200 (0-5/HPF) Ur Epithelial Cells RARE (NONE-FEW) Amorphous Sediment FEW (NEGATIVE) Urine Bacteria 2+ H (NEGATIVE) Urine Mucus FEW (NONE-MOD) Urine Trichomonas (NEGATIVE) Meds: Medications Generic Name Dose Route Start Last Admin Trade Name Freq PRN Reason Stop Dose Admin Sodium Chloride 500 mls @ 999 mls/hr 04/02/18 17:41 04/02/18 17:42 Normal Saline IV 04/02/18 18:11 999 mls/hr ONETIME ONE Administration Levofloxacin/Dextrose 500 mg/ 100 mls @ 100 mls/hr 04/02/18 17:57 04/02/18 18 :03 Premix IV 04/02/18 18:56 100 mls/hr ONETIME ONE Administration Sodium Chloride 10 ml 04/02/18 16:10 Saline Flush FLUSH ASDIRECTED PRN Keep Vein Open Sodium Chloride 2.5 ml 04/02/18 16:10 Saline Flush FLUSH ASDIRECTED PRN Keep Vein Open Discontinued Medications Generic Name Dose Route Start Last Admin Trade Name Freq PRN Reason Stop Dose Admin Acetaminophen 1,000 mg 04/02/18 16:11 04/02/18 16:40 Tylenol Extra Strength PO 04/02/18 16:12 1,000 mg ONETIME ONE Administration Sodium Chloride 1,000 mls @ 999 mls/hr 04/02/18 16:10 04/02/18 16:35 Normal Saline IV 04/02/18 17:10 999 mls/hr STAT ONE Administration Ketorolac Tromethamine 30 mg 04/02/18 16:10 04/02/18 16:40 Toradol IVPUSH 04/02/18 16:11 30 mg ONETIME ONE Administration Ondansetron HCl 4 mg 04/02/18 16:10 04/02/18 16:36 Zofran IVPUSH 04/02/18 16:11 4 mg ONETIME ONE Administration Phenazopyridine HCl 200 mg 04/02/18 17:57 04/02/18 18:03 Pyridium PO 04/02/18 17:58 200 mg ONETIME ONE Administration Departure - Departure Time of Disposition: 18:05 Disposition: Home, Self-Care 01 Condition: Good Clinical Impression: Influenza A, Dehydration UTI (urinary tract infection) Qualifiers: Urinary tract infection type: site unspecified Hematuria presence: without hematuria Qualified Code(s): N39.0 - Urinary tract infection, site not specified Vomiting Qualifiers: Vomiting type: unspecified Vomiting Intractability: non-intractable Nausea presence: with nausea Qualified Code(s): R11.2 - Nausea with vomiting, unspecified - Discharge Information Referrals: Ronnell Richardson MD [Primary Care Provider] - Forms: ED Department Discharge Additional Instructions: The following information is given to patients seen in the emergency department who are being discharged to home. This information is to outline your options for follow-up care. We provide all patients seen in our emergency department with a follow-up referral. The need for follow-up, as well as the timing and circumstances, are variable depending upon the specifics of your emergency department visit. If you don't have a primary care physician on staff, we will provide you with a referral. We always advise you to contact your personal physician following an emergency department visit to inform them of the circumstance of the visit and for follow-up with them and/or the need for any referrals to a consulting specialist. The emergency department will also refer you to a specialist when appropriate. This referral assures that you have the opportunity for followup care with a specialist. All of these measure are taken in an effort to provide you with optimal care, which includes your followup. Under all circumstances we always encourage you to contact your private physician who remains a resource for coordinating your care. When calling for followup care, please make the office aware that this follow-up is from your recent emergency room visit. If for any reason you are refused follow-up, please contact the [facility] emergency department at and ask to speak to the emergency department charge nurse. [address] [place] [address] Push hydration with small sips of fluid and ice chips and popsicles as we discussed and small bites of bland food. Use Zofran as you need for nausea and vomiting. Please start the Intermedics tomorrow and take the Tamiflu and Pyridium as directed. These call and schedule a follow-up with your provider in the clinic and return to ER as needed and as discussed. - My Orders Last 24 Hours: My Active Orders 04/02/18 16:10 Sodium Chloride 0.9% [Saline Flush] 10 ml FLUSH ASDIRECTED PRN Sodium Chloride 0.9% [Saline Flush] 2.5 ml FLUSH ASDIRECTED PRN Saline Lock Insert [OM.PC] Stat 04/02/18 16:23 CULTURE URINE [RM] Stat 04/02/18 17:41 Sodium Chloride 0.9% [Normal Saline] 500 ml IV ONETIME 04/02/18 17:57 Levofloxacin/Dextrose 5%-Water [Levaquin in D5W 500 MG/100 ML] 500 mg Premix Bag 1 bag IV ONETIME - Assessment/Plan Last 24 Hours: My Active Orders 04/02/18 16:10 Sodium Chloride 0.9% [Saline Flush] 10 ml FLUSH ASDIRECTED PRN Sodium Chloride 0.9% [Saline Flush] 2.5 ml FLUSH ASDIRECTED PRN Saline Lock Insert [OM.PC] Stat 04/02/18 16:23 CULTURE URINE [RM] Stat 04/02/18 17:41 Sodium Chloride 0.9% [Normal Saline] 500 ml IV ONETIME 04/02/18 17:57 Levofloxacin/Dextrose 5%-Water [Levaquin in D5W 500 MG/100 ML] 500 mg Premix Bag 1 bag IV ONETIME
[2018-04-02] MEDS ORDERED: Sodium Chloride 0.9% 500 ML IV ONE (17:41)
[2018-04-02] MEDS ORDERED: Levofloxacin/Dextrose 5%-Water 500 MG in Premix Bag 1 BAG IV ONE (17:57)
[2018-04-02] MEDS ORDERED: Phenazopyridine 200 MG Tab PO ONE (17:57)
[2018-04-02 19:10] VITALS: BP 98/57
== END 2018-04-02 19:00 | disposition home or self-care (01) ==
LOC: MW.ED 15:49
DX: J10.1 Influenza due to other identified influenza virus with other respiratory manifestations (principal); N39.0 Urinary tract infection, site not specified; E86.0 Dehydration; I48.91 Unspecified atrial fibrillation; E78.00 Pure hypercholesterolemia, unspecified; K21.9 Gastro-esophageal reflux disease without esophagitis; Z79.82 Long term (current) use of aspirin; Z79.899 Other long term (current) drug therapy
CPT/HCPCS: 81001; 87086; 87088; 87186; 96361; 96365; 96375; 99283; A9270; J1885; J1956; J2405; J7040